=== PATIENT | female | born 1985 | race African-American/Black ===

== ENCOUNTER 2021-12-08 11:11 | Inpatient (IN) | payer MEDICAID, OTHER ==
[~2021-12-08] VITALS: Ht 170.2 cm; Wt 84.7 kg
[2021-12-08 12:04] LABS: Basophils # (auto) 0 10 ^3/uL (0-0.2); Eosinophils # (auto) 0.1 10 ^3/uL (0-0.8); Lymphocytes # (auto) 0.9 10 ^3/uL (0.4-5.4); Mean Corpuscular Volume 80.2 fL (80.0-100.0); Monocytes # (auto) 0.1 10 ^3/uL (0-1.3); Neutrophils # (auto) 1.8 10 ^3/uL (1.6-8.6); White Blood Cell 2.9 10^3/uL (4.4-10.8)
[2021-12-08 12:06] LABS: Basophils % (auto) 0.4 % (0.0-2.0); Hematocrit 35.8 % (36.0-46.0); Hemoglobin 11.3 g/dL (12.2-16.2); Lymphocytes % (auto) 30.7 % (10.0-50.0); Mean Corpuscular Hemoglobin 25.3 pg (28.0-32.0); Mean Corpuscular Hgb Conc. 31.6 g/dL (32.0-36.0); Monocytes % (auto) 4.9 % (0.0-12.0); Nucleated Red Blood Cells % 0.1 %; Red Blood Cells 4.46 10^6/uL (4.0-5.20); Red Cell Distribution Width 14.8 % (11.8-14.3)
[2021-12-08 12:26] LABS: Albumin 3.8 g/dL (3.4-5.0); BUN/Creatinine Ratio 9.7; Calcium 8.2 mg/dL (8.5-10.1); Magnesium 2.5 mg/dL (1.6-2.6); Potassium 3.8 mmol/L (3.5-5.1)
[2021-12-08 12:29] LABS: Bilirubin, Total 0.3 mg/dL (0.2-1.0); Total Protein 7.9 g/dL (6.4-8.2)
[2021-12-08 14:42] LABS: Urine Bacteria FEW /hpf (None Seen); Urine Blood 3+ /uL (Negative); Urine Specific Gravity 1.009 (1.001-1.035); Urine WBC 3 /hpf (0 - 5)
[2021-12-08] MEDS ORDERED: ASPirin 325 MG TAB PO ONE (15:45)
[2021-12-08] MEDS ORDERED: MORPHINE SULFATE INJ 2 MG/ml SYRG IV PRN (16:15)
[2021-12-08] MEDS ORDERED: ACETAMINOPHEN 325 MG TAB PO PRN (16:15)
[2021-12-08] MEDS ORDERED: HYDROcodone-ACET 5/325MG TAB PO PRN (16:15)
[2021-12-08] MEDS: SODIUM CHLORIDE 0.9% 1,000 ML IV SCH (16:52)
[2021-12-08 23:35] VITALS: BP 130/85
[2021-12-09] MEDS ORDERED: NIF10C PO (01:56)
[2021-12-09 05:00] VITALS: BP 112/74
[2021-12-09 06:08] LABS: Basophils # (auto) 0 10 ^3/uL (0-0.2); Lymphocytes # (auto) 1.7 10 ^3/uL (0.4-5.4); Monocytes # (auto) 0.2 10 ^3/uL (0-1.3); Neutrophils # (auto) 1.5 10 ^3/uL (1.6-8.6); Nucleated Red Blood Cells % 0.2 %; White Blood Cell 3.5 10^3/uL (4.4-10.8)
[2021-12-09 06:12] LABS: Basophils % (auto) 0.5 % (0.0-2.0); Eosinophils # (auto) 0.2 10 ^3/uL (0-0.8); Eosinophils % (auto) 4.4 % (0.0-7.0); Hematocrit 34.5 % (36.0-46.0); Hemoglobin 10.9 g/dL (12.2-16.2); Lymphocytes % (auto) 47.7 % (10.0-50.0); Mean Corpuscular Hemoglobin 25.3 pg (28.0-32.0); Mean Corpuscular Hgb Conc. 31.5 g/dL (32.0-36.0); Mean Corpuscular Volume 80.4 fL (80.0-100.0); Monocytes % (auto) 4.9 % (0.0-12.0); Neutrophils % (auto) 42.5 % (37.0-80.0); Red Blood Cells 4.29 10^6/uL (4.0-5.20); Red Cell Distribution Width 14.8 % (11.8-14.3)
[2021-12-09 07:16] LABS: Albumin 3.4 g/dL (3.4-5.0); Calcium 8.3 mg/dL (8.5-10.1); Potassium 3.9 mmol/L (3.5-5.1)
[2021-12-09 07:20] LABS: BUN/Creatinine Ratio 10.9; Bilirubin, Total 0.3 mg/dL (0.2-1.0); Total Protein 7.3 g/dL (6.4-8.2)
[2021-12-09 08:00] VITALS: BP 120/89
[2021-12-09 09:00] VITALS: BP 107/74
[2021-12-09] MEDS: ENOXAPARIN SOD 40 MG/0.4 ML SYRINGE SC SCH (09:33)
[2021-12-09] MEDS: SODIUM CHLORIDE 0.9% 1,000 ML IV SCH ×2 (09:35→19:53)
[2021-12-09] MEDS ORDERED: ASPirin 81 mg TAB PO ONE (12:00)
[2021-12-09] MEDS ORDERED: NIFEdipine ER 30 MG TAB PO ONE (12:00)
[2021-12-09 12:05] LABS: Cholesterol 133 mg/dL (< 200)
[2021-12-09 12:08] LABS: HDL Cholesterol 38 mg/dL (40-59); LDL Cholesterol 93 mg/dL (< 100); Triglycerides 63 mg/dL (< 150)
[2021-12-09 13:00] VITALS: BP 120/89
[2021-12-09 16:32] VITALS: BP 133/88
[2021-12-09 22:00] VITALS: BP 110/70
[2021-12-10] VITALS (8 sets, daily range): BP systolic 105–124; BP diastolic 67–87
[2021-12-10 05:05] LABS: Basophils # (auto) 0 10 ^3/uL (0-0.2); Eosinophils # (auto) 0.1 10 ^3/uL (0-0.8); Monocytes # (auto) 0.1 10 ^3/uL (0-1.3); Neutrophils # (auto) 1.7 10 ^3/uL (1.6-8.6); Red Cell Distribution Width 14.7 % (11.8-14.3); White Blood Cell 3.5 10^3/uL (4.4-10.8)
[2021-12-10 05:07] LABS: Basophils % (auto) 0.5 % (0.0-2.0); Eosinophils % (auto) 3.8 % (0.0-7.0); Hematocrit 33.3 % (36.0-46.0); Hemoglobin 10.6 g/dL (12.2-16.2); Lymphocytes # (auto) 1.5 10 ^3/uL (0.4-5.4); Lymphocytes % (auto) 43.8 % (10.0-50.0); Mean Corpuscular Hemoglobin 25.4 pg (28.0-32.0); Mean Corpuscular Hgb Conc. 31.7 g/dL (32.0-36.0); Mean Corpuscular Volume 80.2 fL (80.0-100.0); Monocytes % (auto) 3.9 % (0.0-12.0); Red Blood Cells 4.15 10^6/uL (4.0-5.20)
[2021-12-10 05:23] LABS: INR 0.95 (0.9-1.15); Partial Thromboplastin Time 28.4 sec (24.6-33.4)
[2021-12-10 05:35] LABS: Calcium 8.5 mg/dL (8.5-10.1)
[2021-12-10] MEDS ORDERED: IODIXANOL 320MG/ML 100ML BTL IV ONE (08:21)
[2021-12-10] MEDS ORDERED: LIDOCAINE 2%HCL (LOCAL ANESTH.) INJ 20ML MDV ONE (08:21)
[2021-12-10] MEDS ORDERED: fentaNYL CITRATE 100 MCG/2 ML VL ONE (08:29)
[2021-12-10] MEDS ORDERED: VERAPAMIL 2.5MG/ML INJ 2ML VIAL IV ONE ×2 (08:29→09:34)
[2021-12-10] MEDS ORDERED: HEPARIN SODIUM (PORCINE) 5000 UNITS/ML 1ML VIAL ONE ×2 (08:29→09:34)
[2021-12-10] MEDS ORDERED: MIDAZOLAM HCL 2MG/2ML 2ml VIAL (1mg/ml) ONE (08:29)
[2021-12-10] MEDS ORDERED: ANGIOMAX 250 MG VIAL IV ONE (08:29)
[2021-12-10] MEDS ORDERED: SODIUM CHL 0.9% 0 ML ONE (08:30)
[2021-12-10] MEDS ORDERED: NIFEdipine ER 30 MG TAB PO SCH (10:00)
[2021-12-10] MEDS: ENOXAPARIN SOD 40 MG/0.4 ML SYRINGE SC SCH (10:00)
[2021-12-10] MEDS ORDERED: ASPirin 81 mg TAB PO SCH (10:00)
[2021-12-10] MEDS ORDERED: ASPI-325 PO (10:57)
[2021-12-10] MEDS ORDERED: SACU1TAB PO (12:05)
[2021-12-10] MEDS ORDERED: CAR3125T PO (12:05)
[2021-12-10] MEDS ORDERED: CARVEDILOL 3.125 MG TAB PO SCH (22:00)
[2021-12-10] MEDS ORDERED: SACUBITRIL-VALSARTAN 24mg/26mg TAB PO SCH (22:00)
== END 2021-12-10 17:00 | disposition home or self-care (01) | DRG 287 ==
LOC: ER 11:11 → EDBD 11:11 → TELE 16:09 → TELE-WESTW 23:01
PROVIDERS: ADMIT Internal Medicine; ATTEND Internal Medicine Pulmonary Disease
PROC: 4A023N7 Measurement of Cardiac Sampling and Pressure, Left Heart, Percutaneous Approach (ICD-10-PCS; principal; 2021-12-10)
PROC: B2111ZZ Fluoroscopy of Multiple Coronary Arteries using Low Osmolar Contrast (ICD-10-PCS; 2021-12-10)
PROC: B2151ZZ Fluoroscopy of Left Heart using Low Osmolar Contrast (ICD-10-PCS; 2021-12-10)
DX: R07.89 Other chest pain (principal); I10 Essential (primary) hypertension; Z82.49 Family history of ischemic heart disease and other diseases of the circulatory system; Z79.899 Other long term (current) drug therapy; Z84.1 Family history of disorders of kidney and ureter
CPT/HCPCS: 36415; 71045; 80048; 80053; 80061; 81001; 81025; 83735; 83880; 84484; 84702; 85025; 85610; 85730; 93005; 93306; 93458; G0378; J2250; Q9967

== ENCOUNTER → 2022-01-20 | Outpatient (CLI) | payer BC ==
[~2022-01-20] MED LIST: ASPI-325 PO; CAR3125T PO; SACU1TAB PO
== END | disposition home or self-care (01) ==
LOC: XYW 15:58
PROVIDERS: ATTEND Nurse Practitioner Acute Care
DX: I08.2 Rheumatic disorders of both aortic and tricuspid valves (principal); I10 Essential (primary) hypertension; I50.1 Left ventricular failure, unspecified
CPT/HCPCS: 93306

== ENCOUNTER → 2022-04-22 | Outpatient (CLI) | payer BC ==
[2022-04-22 13:39] LABS: Eosinophils # (auto) 0.1 10 ^3/uL (0-0.8); Monocytes # (auto) 0.2 10 ^3/uL (0-1.3); Neutrophils # (auto) 2.5 10 ^3/uL (1.6-8.6)
[2022-04-22 13:41] LABS: Basophils # (auto) 0.1 10 ^3/uL (0-0.2); Basophils % (auto) 1.2 % (0.0-2.0); Eosinophils % (auto) 1.8 % (0.0-7.0); Hematocrit 34.7 % (36.0-46.0); Hemoglobin 10.7 g/dL (12.2-16.2); Lymphocytes # (auto) 1.9 10 ^3/uL (0.4-5.4); Lymphocytes % (auto) 40.7 % (10.0-50.0); Mean Corpuscular Hgb Conc. 30.7 g/dL (32.0-36.0); Mean Corpuscular Volume 71.6 fL (80.0-100.0); Neutrophils % (auto) 52.3 % (37.0-80.0); Red Blood Cells 4.84 10^6/uL (4.0-5.20); Red Cell Distribution Width 18.3 % (11.8-14.3); White Blood Cell 4.8 10^3/uL (4.4-10.8)
[2022-04-22 14:03] LABS: Calcium 9.1 mg/dL (8.5-10.1)
[2022-04-22 14:05] LABS: BUN/Creatinine Ratio 11.1
== END | disposition home or self-care (01) ==
LOC: LAB 13:26
PROVIDERS: ATTEND Internal Medicine
DX: I11.9 Hypertensive heart disease without heart failure (principal)
CPT/HCPCS: 36415; 80048; 85025

== ENCOUNTER → 2022-06-13 | Outpatient (CLI) | payer BC ==
[2022-06-13 15:26] LABS: Basophils # (auto) 0 10 ^3/uL (0-0.2); Eosinophils # (auto) 0.1 10 ^3/uL (0-0.8); Mean Corpuscular Hemoglobin 21.2 pg (28.0-32.0); Mean Corpuscular Hgb Conc. 30.6 g/dL (32.0-36.0); Nucleated Red Blood Cells % 0.1 %
[2022-06-13 15:28] LABS: Basophils % (auto) 0.3 % (0.0-2.0); Eosinophils % (auto) 2.5 % (0.0-7.0); Hematocrit 34.1 % (36.0-46.0); Hemoglobin 10.4 g/dL (12.2-16.2); Lymphocytes # (auto) 2.2 10 ^3/uL (0.4-5.4); Lymphocytes % (auto) 38.4 % (10.0-50.0); Mean Corpuscular Volume 69.2 fL (80.0-100.0); Monocytes # (auto) 0.3 10 ^3/uL (0-1.3); Monocytes % (auto) 4.5 % (0.0-12.0); Neutrophils % (auto) 54.3 % (37.0-80.0); Red Blood Cells 4.92 10^6/uL (4.0-5.20); White Blood Cell 5.6 10^3/uL (4.4-10.8)
[2022-06-13 15:44] LABS: INR 0.94 (0.9-1.15); Partial Thromboplastin Time 30.1 sec (24.6-33.4)
[2022-06-13 15:47] LABS: Albumin 3.8 g/dL (3.4-5.0); BUN/Creatinine Ratio 12.7; Calcium 9.1 mg/dL (8.5-10.1); Potassium 4.4 mmol/L (3.5-5.1)
[2022-06-13 15:50] LABS: Bilirubin, Total 0.3 mg/dL (0.2-1.0); Total Protein 8.2 g/dL (6.4-8.2)
== END | disposition home or self-care (01) ==
LOC: LAB 14:59
PROVIDERS: ATTEND Internal Medicine
DX: Z01.812 Encounter for preprocedural laboratory examination (principal); I11.0 Hypertensive heart disease with heart failure; I50.22 Chronic systolic (congestive) heart failure
CPT/HCPCS: 36415; 80053; 83880; 85025; 85610; 85730

== ENCOUNTER → 2022-08-03 | Outpatient (CLI) | payer BC ==
[2022-08-03 11:18] LABS: Basophils # (auto) 0 10 ^3/uL (0-0.2); Basophils % (auto) 0.6 % (0.0-2.0); Eosinophils # (auto) 0 10 ^3/uL (0-0.8); Hemoglobin 8.7 g/dL (12.2-16.2); Lymphocytes # (auto) 1.5 10 ^3/uL (0.4-5.4); Monocytes # (auto) 0.2 10 ^3/uL (0-1.3); Neutrophils # (auto) 2.4 10 ^3/uL (1.6-8.6); White Blood Cell 4.1 10^3/uL (4.4-10.8)
[2022-08-03 11:21] LABS: Eosinophils % (auto) 1.1 % (0.0-7.0); Lymphocytes % (auto) 36.2 % (10.0-50.0); Mean Corpuscular Hemoglobin 19.8 pg (28.0-32.0); Mean Corpuscular Volume 65.8 fL (80.0-100.0); Monocytes % (auto) 4.5 % (0.0-12.0); Neutrophils % (auto) 57.6 % (37.0-80.0); Red Cell Distribution Width 18.3 % (11.8-14.3)
[2022-08-03 12:15] LABS: Albumin 3.6 g/dL (3.4-5.0); BUN/Creatinine Ratio 13.1 (10.0-20.0); Calcium 8.6 mg/dL (8.5-10.1); Potassium 3.6 mmol/L (3.5-5.1); Total Protein 7.6 g/dL (6.4-8.2)
[2022-08-03 12:18] LABS: Bilirubin, Total 0.5 mg/dL (0.2-1.0)
== END | disposition home or self-care (01) ==
LOC: LAB 10:15
PROVIDERS: ATTEND Obstetrics & Gynecology
DX: Z01.419 Encounter for gynecological examination (general) (routine) without abnormal findings (principal)
CPT/HCPCS: 36415; 80053; 80061; 82306; 83036; 84443; 84480; 85025; 86592; 86695; 86696; 86703; 87340; 87517

== ENCOUNTER → 2022-12-27 | Outpatient (CLI) | payer BC | END | disposition home or self-care (01) | LOC: XYW 15:37 | PROVIDERS: ATTEND Internal Medicine | DX: I42.8 Other cardiomyopathies (principal) | CPT/HCPCS: 93306 ==

== ENCOUNTER → 2023-01-03 | Outpatient (CLI) | payer BC ==
[2023-01-03 12:00] LABS: Follicle Stimulating Hormone 7.02 IU/L (SEE BELOW); Leuteinizing Hormone 4.7 IU/L
== END | disposition home or self-care (01) ==
LOC: LAB 11:04
PROVIDERS: ATTEND Obstetrics & Gynecology
DX: N95.1 Menopausal and female climacteric states (principal)
CPT/HCPCS: 36415; 82670; 83001; 83002; 84144; 84403

== ENCOUNTER 2023-02-24 07:12 | Day surgery (SDC) | payer BC ==
[2023-02-21 10:43] LABS: Basophils # (auto) 0 10 ^3/uL (0-0.2); Basophils % (auto) 0.6 % (0.0-2.0); Eosinophils # (auto) 0.1 10 ^3/uL (0-0.8); Eosinophils % (auto) 2.3 % (0.0-7.0); Hematocrit 36.4 % (36.0-46.0); Hemoglobin 12.2 g/dL (12.2-16.2); Lymphocytes # (auto) 1.3 10 ^3/uL (0.4-5.4); Lymphocytes % (auto) 38.8 % (10.0-50.0); Mean Corpuscular Hemoglobin 29.8 pg (28.0-32.0); Mean Corpuscular Hgb Conc. 33.5 g/dL (32.0-36.0); Mean Corpuscular Volume 89.1 fL (80.0-100.0); Monocytes # (auto) 0.1 10 ^3/uL (0-1.3); Monocytes % (auto) 3.8 % (0.0-12.0); Neutrophils # (auto) 1.8 10 ^3/uL (1.6-8.6); Neutrophils % (auto) 54.5 % (37.0-80.0); Nucleated Red Blood Cells % 0.1 %; Red Blood Cells 4.09 10^6/uL (4.0-5.20); Red Cell Distribution Width 14.3 % (11.8-14.3); White Blood Cell 3.4 10^3/uL (4.4-10.8)
[2023-02-21 10:57] LABS: Urine Bacteria FEW /hpf (None Seen); Urine Blood Negative /uL (Negative); Urine Clarity Clear (Clear); Urine Color Yellow (Yellow); Urine Mucus FEW (None Seen); Urine Protein, UAD TRACE (Negative); Urine Specific Gravity 1.025 (1.001-1.035); Urine Urobilinogen Normal (Negative); Urine WBC 1 /hpf (0 - 5)
[2023-02-21 11:01] LABS: INR 1.02 (0.9-1.15); Partial Thromboplastin Time 30.8 SEC (24.5-34.5); Prothrombin Time 10.7 sec (9.3-11.8)
[2023-02-21 11:03] LABS: Alanine Aminotransferase 17 U/L (7-40); Albumin 4.3 g/dL (3.2-4.8); Alkaline Phosphatase 38 U/L (46-116); Anion Gap 7 (5-15); Aspartate Aminotransferase 9 U/L (13-40); BUN/Creatinine Ratio 12.2 (10.0-20.0); Blood Urea Nitrogen 9 mg/dL (9-23); Calcium 9.1 mg/dL (8.5-10.1); Carbon Dioxide 28 mmol/L (20-30); Chloride 105 mmol/L (98-107); Glucose 88 mg/dL (74-106); Potassium 3.8 mmol/L (3.5-5.1); Sodium 140 mmol/L (136-145); Total Protein 7.3 g/dL (5.7-8.2)
[2023-02-21 11:13] LABS: Bilirubin, Total 0.5 mg/dL (0.2-1.0)
[~2023-02-24] VITALS: Ht 170.2 cm; Wt 81.6 kg
[~2023-02-24 07:12] MED LIST changes: +ceFAZolin 1GM/50ML 100 ML IV ONE
[2023-02-24] MEDS ORDERED: SUCCINYLCHOLINE CHLORIDE 20 MG/ML 10ML VIAL IV ONE (08:05)
[2023-02-24] MEDS ORDERED: fentaNYL CITRATE 100 MCG/2 ML VL ONE (08:06)
[2023-02-24] MEDS ORDERED: SUGAMMADEX 200mg/2ml Vial (100MG/ML) IV ONE (08:08)
[2023-02-24] MEDS ORDERED: PROPOFOL 10 MG/ML 20 ML IV ONE (08:37)
[2023-02-24] MEDS ORDERED: ROCURONIUM 10MG/ML 10ML VIAL IV ONE (08:44)
[2023-02-24] MEDS ORDERED: ONDANSETRON HCL 4 MG/2 ML VIAL ONE (08:45)
[2023-02-24] MEDS ORDERED: DexAMETHasone SOD PHOS 10MG/1ML VIAL INJ ONE (08:46)
[2023-02-24] MEDS ORDERED: MEPERIDINE HCL (50 MG/ML) 1 ML VIAL ONE (08:47)
[2023-02-24] MEDS ORDERED: BUPIVACAINE 0.5% P/F INJ 10 ML VIAL ONE (09:08)
[2023-02-24] MEDS ORDERED: SODIUM CHLORIDE LOCK 30 ML ONE (10:07)
[2023-02-24] MEDS ORDERED: HYDR-4902 PO (10:17)
[2023-02-24 10:37] VITALS: PULSE 74; RESP 15; O2SAT 93
[2023-02-24] MEDS ORDERED: MEPERIDINE HCL (25 MG/ML) 1ML VIAL IV PRN (11:00)
[2023-02-24] MEDS ORDERED: ONDANSETRON HCL 4 MG/2 ML VIAL IV PRN (11:00)
[2023-02-24] MEDS: HYDROmorphone HCL 2 MG/ML VL/or syr IV PRN ×2 (11:25→11:36)
[2023-02-24 11:57] VITALS: BP 133/86; PULSE 63; RESP 14; O2SAT 98
== END 2023-02-24 12:10 | disposition home or self-care (01) ==
LOC: SUR 07:12
PROVIDERS: ATTEND Obstetrics & Gynecology
DX: N92.0 Excessive and frequent menstruation with regular cycle (principal); N83.8 Other noninflammatory disorders of ovary, fallopian tube and broad ligament; N88.8 Other specified noninflammatory disorders of cervix uteri; D25.9 Leiomyoma of uterus, unspecified; I10 Essential (primary) hypertension; Z30.2 Encounter for sterilization; Z98.890 Other specified postprocedural states; Z84.89 Family history of other specified conditions; Z79.82 Long term (current) use of aspirin; Z79.891 Long term (current) use of opiate analgesic; Z79.899 Other long term (current) drug therapy
CPT/HCPCS: 36415; 58563; 58661; 80053; 81001; 81025; 85025; 85610; 85730; 86850; 86900; 86901; 88305; J0330; J0690; J1100; J1170; J2175; J2405; J2704; J3010; J3490

== ENCOUNTER 2023-03-01 15:48 | Emergency (ER) | payer BC ==
[~2023-03-01] VITALS: Ht 165.1 cm; Wt 81.5 kg
[~2023-03-01 15:48] MED LIST changes: +HYDR-4902 PO; -ceFAZolin 1GM/50ML 100 ML IV ONE
[2023-03-01 16:57] LABS: Basophils # (auto) 0 10 ^3/uL (0-0.2); Basophils % (auto) 0.7 % (0.0-2.0); Eosinophils # (auto) 0.1 10 ^3/uL (0-0.8); Eosinophils % (auto) 2.3 % (0.0-7.0); Hematocrit 38.4 % (36.0-46.0); Hemoglobin 12.4 g/dL (12.2-16.2); Lymphocytes # (auto) 1.3 10 ^3/uL (0.4-5.4); Lymphocytes % (auto) 26.1 % (10.0-50.0); Mean Corpuscular Hemoglobin 28.5 pg (28.0-32.0); Mean Corpuscular Hgb Conc. 32.3 g/dL (32.0-36.0); Mean Corpuscular Volume 88.2 fL (80.0-100.0); Monocytes # (auto) 0.5 10 ^3/uL (0-1.3); Monocytes % (auto) 9.9 % (0.0-12.0); Nucleated Red Blood Cells % 0.1 %; Red Blood Cells 4.36 10^6/uL (4.0-5.20); Red Cell Distribution Width 14.5 % (11.8-14.3); White Blood Cell 4.9 10^3/uL (4.4-10.8)
[2023-03-01 17:17] LABS: Alanine Aminotransferase 17 U/L (7-40); Albumin 4.3 g/dL (3.2-4.8); Alkaline Phosphatase 38 U/L (46-116); Anion Gap 6 (5-15); Aspartate Aminotransferase 10 U/L (13-40); BUN/Creatinine Ratio 8.3 (10.0-20.0); Bilirubin, Total 0.4 mg/dL (0.2-1.0); Blood Urea Nitrogen 6 mg/dL (9-23); Calcium 9.1 mg/dL (8.5-10.1); Carbon Dioxide 25 mmol/L (20-30); Chloride 106 mmol/L (98-107); Glucose 109 mg/dL (74-106); Potassium 3.4 mmol/L (3.5-5.1); Sodium 137 mmol/L (136-145)
[2023-03-01 17:18] LABS: Total Protein 7.4 g/dL (5.7-8.2)
[2023-03-01] MEDS ORDERED: SODIUM CHLORIDE 0.9% 1,000 ML IVB ONE (17:45)
[2023-03-01] MEDS ORDERED: ONDANSETRON ODT 4 MG TAB PO ONE (17:45)
[2023-03-01 17:50] LABS: Urine Bacteria NONE SEEN /hpf (None Seen); Urine Blood 1+ /uL (Negative); Urine Clarity HAZY (Clear); Urine Color Yellow (Yellow); Urine Mucus FEW (None Seen); Urine Protein, UAD TRACE (Negative); Urine Specific Gravity 1.029 (1.001-1.035); Urine Urobilinogen Normal (Negative); Urine WBC 1 /hpf (0 - 5); Urine pH 5.5 (5.0-8.0)
[2023-03-01] MEDS ORDERED: METO-281 PO (19:02)
[2023-03-01 19:50] VITALS: BP 121/85; PULSE 81; RESP 16; TEMP 98.8; O2SAT 100
== END 2023-03-01 19:59 | disposition home or self-care (01) ==
LOC: ER 15:48
DX: K52.9 Noninfective gastroenteritis and colitis, unspecified (principal); E87.6 Hypokalemia; I10 Essential (primary) hypertension; Z79.899 Other long term (current) drug therapy; Z79.82 Long term (current) use of aspirin; Z98.890 Other specified postprocedural states
CPT/HCPCS: 36415; 80053; 81001; 85025; 96360; 96361; 99283; J7030; Q0162

== ENCOUNTER → 2023-06-22 | Outpatient (CLI) | payer BC ==
[~2023-06-22] MED LIST changes: +METO-281 PO
== END | disposition home or self-care (01) ==
LOC: XYW 14:39
PROVIDERS: ATTEND Internal Medicine
DX: I51.89 Other ill-defined heart diseases (principal); I42.8 Other cardiomyopathies
CPT/HCPCS: 93306

== ENCOUNTER 2024-01-14 09:16 | Inpatient (IN) | payer BC, MEDICAID ==
[~2024-01-14] VITALS: Ht 170.2 cm; Wt 81.9 kg
[~2024-01-14 09:16] MED LIST changes: -CAR3125T PO; +CARV-214 PO
[2024-01-14 10:04] LABS: Basophils # (auto) 0 10 ^3/uL (0-0.2); Basophils % (auto) 0.2 % (0.0-2.0); Eosinophils # (auto) 0.1 10 ^3/uL (0-0.8); Eosinophils % (auto) 1.1 % (0.0-7.0); Hematocrit 44.3 % (36.0-46.0); Hemoglobin 15.2 g/dL (12.2-16.2); Lymphocytes # (auto) 0.9 10 ^3/uL (0.4-5.4); Lymphocytes % (auto) 16.9 % (10.0-50.0); Mean Corpuscular Hemoglobin 31.2 pg (28.0-32.0); Mean Corpuscular Hgb Conc. 34.3 g/dL (32.0-36.0); Mean Corpuscular Volume 90.9 fL (80.0-100.0); Monocytes # (auto) 0.3 10 ^3/uL (0-1.3); Monocytes % (auto) 4.7 % (0.0-12.0); Neutrophils # (auto) 4.1 10 ^3/uL (1.6-8.6); Neutrophils % (auto) 77.1 % (37.0-80.0); Nucleated Red Blood Cells % 0.1 %; Platelet Count (auto) 255 10^3/uL (140-450); Red Blood Cells 4.88 10^6/uL (4.0-5.20); Red Cell Distribution Width 14.8 % (11.8-14.3); White Blood Cell 5.4 10^3/uL (4.4-10.8)
[2024-01-14 10:13] LABS: Chloride 107 mmol/L (98-107); Potassium 3.9 mmol/L (3.5-5.1); Sodium 137 mmol/L (136-145)
[2024-01-14 10:14] LABS: Anion Gap 6 (5-15); Calcium 9.3 mg/dL (8.7-10.4); Carbon Dioxide 24 mmol/L (20-30)
[2024-01-14 10:19] LABS: BUN/Creatinine Ratio 10.4 (10.0-20.0); Blood Urea Nitrogen 8 mg/dL (9-23); Glucose 112 mg/dL (74-106)
[2024-01-14 11:10] VITALS: PULSE 83; RESP 16; O2SAT 99
[2024-01-14 11:47] LABS: Urine Bacteria None Seen /hpf (None Seen)
[2024-01-14] MEDS: ASPirin 81 mg TAB PO ONE (11:49)
[2024-01-14 11:54] LABS: Urine Blood TRACE /uL (Negative); Urine Clarity Clear (Clear); Urine Color Light-Yellow (Yellow); Urine Protein, UAD Negative (Negative); Urine Urobilinogen Normal (Negative); Urine WBC 1 /hpf (0 - 5)
[2024-01-14] MEDS: ACETAMINOPHEN 325 MG TAB PO ONE (13:22)
[2024-01-14] MEDS: ONDANSETRON HCL 4 MG/2 ML VIAL IV ONE (14:58)
[2024-01-14] MEDS ORDERED: LOSA-534 PO (16:26)
[2024-01-14] MEDS ORDERED: HYDR12.59 PO (16:26)
[2024-01-14] MEDS ORDERED: ACETAMINOPHEN 325 MG TAB PO PRN (16:30)
[2024-01-14] MEDS ORDERED: NITROGLYCERIN 0.4 MG SL TAB SL PRN ×2 (16:30)
[2024-01-14 17:14] LABS: Magnesium 2.1 mg/dL (1.6-2.6)
[2024-01-14] MEDS: MORPHINE SULFATE INJ 2 MG/ml SYRG IV PRN (17:28)
[2024-01-14] MEDS: ONDANSETRON HCL 4 MG/2 ML VIAL IV PRN (17:35)
[2024-01-14 18:32] LABS: Prothrombin Time 10.6 sec (9.3-11.8)
[2024-01-14] MEDS: HYDROcodone-ACET 5/325MG TAB PO PRN (18:59)
[2024-01-14 20:17] VITALS: PULSE 70; RESP 16; O2SAT 100
[2024-01-14 21:41] VITALS: BP 128/85; PULSE 72; PULSE 75; RESP 16; RESP 18; TEMP 98.1; O2SAT 100
[2024-01-14] MEDS ORDERED: METR-344 PO (22:15)
[2024-01-14] MEDS: CARVEDILOL 3.125 MG TAB PO SCH (22:31)
[2024-01-14] MEDS: SACUBITRIL-VALSARTAN 24mg/26mg TAB PO SCH (22:31)
[2024-01-14] MEDS: ATORVASTATIN 20 MG TAB PO SCH (22:32)
[2024-01-14] MEDS: diphenhdrAMINE HCL 50 MG/1 ML VL IV ONE (22:58)
[2024-01-14] MEDS: metroNIDAZOLE 500 MG TAB PO ONE (22:58)
[2024-01-15] VITALS (8 sets, daily range): BP systolic 93–124; BP diastolic 56–78; PULSE 64–101; RESP 17–20; TEMP 97.6–98.4; O2SAT 94–100
[2024-01-15 06:33] LABS: Basophils # (auto) 0 10 ^3/uL (0-0.2); Basophils % (auto) 0.3 % (0.0-2.0); Eosinophils # (auto) 0.1 10 ^3/uL (0-0.8); Eosinophils % (auto) 2.3 % (0.0-7.0); Hematocrit 40.6 % (36.0-46.0); Lymphocytes # (auto) 1.2 10 ^3/uL (0.4-5.4); Mean Corpuscular Hemoglobin 31.3 pg (28.0-32.0); Mean Corpuscular Hgb Conc. 34.5 g/dL (32.0-36.0); Mean Corpuscular Volume 90.8 fL (80.0-100.0); Monocytes # (auto) 0.4 10 ^3/uL (0-1.3); Monocytes % (auto) 9.2 % (0.0-12.0); Neutrophils # (auto) 2.9 10 ^3/uL (1.6-8.6); Neutrophils % (auto) 63.2 % (37.0-80.0); Nucleated Red Blood Cells % 0.1 %; Platelet Count (auto) 208 10^3/uL (140-450); Red Blood Cells 4.48 10^6/uL (4.0-5.20); Red Cell Distribution Width 14.9 % (11.8-14.3); White Blood Cell 4.6 10^3/uL (4.4-10.8)
[2024-01-15 06:51] LABS: Alanine Aminotransferase 23 U/L (7-40); Albumin 3.9 g/dL (3.2-4.8); Alkaline Phosphatase 38 U/L (46-116); Anion Gap 5 (5-15); Aspartate Aminotransferase 15 U/L (13-40); BUN/Creatinine Ratio 12.5 (10.0-20.0); Bilirubin, Total 0.4 mg/dL (0.2-1.0); Blood Urea Nitrogen 9 mg/dL (9-23); Carbon Dioxide 24 mmol/L (20-30); Chloride 109 mmol/L (98-107); Cholesterol 117 mg/dL (< 200); Glucose 96 mg/dL (74-106); HDL Cholesterol 36 mg/dL (40-59); LDL Cholesterol 63 mg/dL (< 100); Potassium 3.9 mmol/L (3.5-5.1); Sodium 138 mmol/L (136-145); Total Protein 6.8 g/dL (5.7-8.2); Triglycerides 97 mg/dL (< 150)
[2024-01-15] MEDS: ASPirin 81 mg TAB PO SCH (09:42)
[2024-01-15] MEDS: metroNIDAZOLE 500 MG TAB PO SCH (09:43)
[2024-01-15] MEDS: diphenhdrAMINE HCL 25 MG CAP PO ONE (09:43)
[2024-01-15] MEDS: DOCUSATE SOD 100 MG CAP PO SCH (09:43)
[2024-01-15] MEDS: ASPirin-EC 81 mg tab PO SCH (09:48)
[2024-01-15] MEDS: diphenhdrAMINE HCL 50 MG/1 ML VL IV PRN (21:50)
[2024-01-16 01:21] VITALS: BP 112/70; PULSE 71; RESP 18; TEMP 98.5; O2SAT 100
[2024-01-16 05:00] VITALS: BP 108/70; PULSE 67; RESP 18; TEMP 98.3; O2SAT 100
[2024-01-16 06:47] LABS: Chloride 110 mmol/L (98-107); Sodium 138 mmol/L (136-145)
[2024-01-16 06:48] LABS: Anion Gap 3 (5-15); Calcium 8.6 mg/dL (8.7-10.4); Carbon Dioxide 25 mmol/L (20-30)
[2024-01-16 06:53] LABS: Blood Urea Nitrogen 9 mg/dL (9-23); Glucose 96 mg/dL (74-106)
[2024-01-16 09:00] VITALS: BP 103/62; PULSE 65; RESP 16; TEMP 98.4; O2SAT 94
== END 2024-01-16 15:45 | disposition home or self-care (01) | DRG 203 ==
LOC: ER 09:34 → TELE 16:23 → TELE-CENTR 21:36 → CENTRAL 01-16 06:21
PROVIDERS: ADMIT Internal Medicine; ATTEND Internal Medicine
DX: M94.0 Chondrocostal junction syndrome [Tietze] (principal); O90.3 Peripartum cardiomyopathy; I50.9 Heart failure, unspecified; I11.0 Hypertensive heart disease with heart failure; R20.0 Anesthesia of skin; R00.2 Palpitations; F41.0 Panic disorder [episodic paroxysmal anxiety]; G43.909 Migraine, unspecified, not intractable, without status migrainosus; N76.0 Acute vaginitis; Z98.51 Tubal ligation status; Z88.9 Allergy status to unspecified drugs, medicaments and biological substances
CPT/HCPCS: 36415; 70450; 71046; 80048; 80053; 80061; 81001; 83036; 83735; 83880; 84100; 84443; 84484; 85025; 85379; 85610; 93005; 93306; 96374; 96375; G0378; J2405

== ENCOUNTER 2024-06-13 10:19 | Emergency (ER) | payer BC, MEDICAID ==
[~2024-06-13] VITALS: Ht 170.2 cm; Wt 83.7 kg
[~2024-06-13 10:19] MED LIST changes: -ASPI-325 PO; +HYDR12.59 PO; +LOSA-534 PO; -METO-281 PO; +METR-344 PO; -SACU1TAB PO
--- NOTE | 2024-06-13 10:45 | ECG ---
[facility] Test Date: 2024-06-13 Test Time: 10:44:03 Pat Name: LACHO MURRELL Department: ER Room: Gender: F Coater [place]: EDWARD : 1985 Requested By: MALA MCKEON Order Number: [id number] Reading MD: Baron Torres Measurements Intervals [place] Rate: 77 P: 77 GA: 129 QRS: 73 QRSD: 94 T: -61 QT: 365 QTc: 414 Interpretive Statements Sinus rhythm Abnormal T, consider ischemia, diffuse leads Electronically Signed On 06-14-2024 13:16:33 PST by Baron Torres Please click the below link to view image of tracing.
--- NOTE | 2024-06-13 10:46 | ED.PDOC ---
History of Present Illness HPI Comments 39-year-old female with PMHx HTN presents with a chief complaint of HTN and headache x 2 days. Patients BP in triage was initially 160/109 and rechecked at 154/104. Patient states that she has been compliant with her medications and sees Dr. Torres for her cardiology concerns. Patient reports the she has a he adache that she rates a 9/10, describes as throbbing, and is localized to her frontal region. Patient denies missing a dose of her medication. Time Seen by MD: 10:34 Primary Care Provider: UNKNOWN Reviewed Notes: Nurses Notes, Medications, Allergies Allergies: Coded Allergies: Miconazole (Verified Allergy, Unknown, 01/14/24) Uncoded Allergies: Adhesive (Allergy, Unknown, 01/15/24) Home Meds Active Scripts Hydrocodone-Acetaminophen (Hydrocodone Bitartrate/AC 5-325 mg) 1 Tab Tab, 1 TAB PO Q6HPRN PRN for 5 Days, #20 TAB Prov:JOANN RONQUILLO DO 02/24/23 Carvedilol (COREG) 3.125 Mg Tab, 3.125 MG PO Q12HR for 30 Days, #60 TAB Prov:MERARI HIGGINS MD 12/10/21 Reported Medications Metronidazole (Flagyl) 500 Mg Tab, 250 MG PO BID 01/14/24 Losartan Potassium (Losartan Potassium) 50 Mg Tab, 50 MG PO DAILY for 30 Days, MG 01/14/24 Hydrochlorothiazide (Hydrochlorothiazide) 12.5 Mg Cap, 12.5 MG PO DAILY, MG 01/14/24 Information Source: Patient Mode of Arrival: Ambulatory Severity: Moderate Timing: Days Duration: Since onset Prehospital treatment: None Past Medical History PAST MEDICAL HISTORY: HTN Surgical History: , Tubal Ligation PASTORAL WORKER History: No Pertinent PASTORAL WORKER History, Ovarian Cysts Family History Family History: Family hx of heart michael Social History Smoker: Non-Smoker Alcohol: Occasionally Drugs: Denies Drug Use Lives In: Home Constitutional: denies: chills, diaphoresis, fatigue, fever, malaise, sweats, weakness, others EENTM: denies: blurred vision, double vision, ear bleeding, ear discharge, ear drainage, ear pain, ear ringing, eye pain, eye redness, hearing loss, mouth pain, mouth swelling, nasal discharge, nose bleeding, nose congestion, nose pain, photophobia, tearing, throat pain, throat swelling, voice changes, others Respiratory: denies: cough, hemoptysis, orthopnea, SOB at rest, shortness of breath, SOB with excertion, stridor, wheezing, others Cardiovascular: reports: others (HTN); denies: chest pain, dizzy spells, diaphoresis, Dyspnea on exertion, edema, irregular heart beat, left arm pain, lightheadedness, palpitations, PND, syncope Gastrointestinal: denies: abdomen distended, abdominal pain, blood streaked bowels, constipated, diarrhea, dysphagia, difficulty swallowing, hematemesis, melena, nausea, poor appetite, poor fluid intake, rectal bleeding, rectal pain, vomiting, others Genitourinary: denies: abnormal vagina bleeding, burning, dyspareunia, dysuria, flank pain, frequency, hematuria, incontinence, pain, , vagina discharge, urgency, others Neurological: reports: headache; denies: dizziness, fainting, left sided numbness, left sided weakness, numbness, paresthesia, pre-existing deficit, right sided numbness, right sided weakness, seizure, speech problems, tingling, tremors, weakness, others Musculoskeletal: denies: back pain, gout, joint pain, joint swelling, muscle pain, muscle stiffness, neck pain, others Integumetry: denies: bruises, change in color, change in hair/nails, dryness, laceration, lesions, lumps, rash, wounds, others Allergic/Immunocompromised: denies: Difficulty Healing, Frequent Infections, Hives, Itching, others Hematologic/Lymphatic: denies: anemia, blood clots, easy bleeding, easy bruising, swollen glands, others Endocrine: denies: excessive hunger, excessive sweating, excessive thirst, excessive urination, flushing, intolerance to cold, intolerance to heat, unexplained weight gain, unexplained weight loss, others Psychiatric: denies: anxiety, bipolar disorder, depression, hopeless, panic disorder, schizophrenia, sleepless, suicidal, others All Other Systems: Reviewed and Negative Physical Exam General Appearance: No Apparent Distress HEENT: Normal ENT Inspection, Pharynx Normal, TMs Normal Neck: Full Range of Motion, Non-Tender, Normal, Normal Inspection Respiratory: Chest Non-Tender, Lungs Clear, No Accessory Muscle Use, No Resp iratory Distress, Normal Breath Sounds Cardiovascular: No Edema, No JVD, No Murmur, No Gallop, Normal Peripheral Pulses, Regular Rate/Rhythm Breast Exam: Deferred Gastrointestinal: No Organomegaly, Non Tender, No Pulsatile Mass, Normal Bowel Sounds, Soft Genitalia: Deferred Pelvic: Deferred Rectal: Deferred Extremities: No calf tenderness, Normal capillary refill, Normal inspection, Normal range of motion, Non-tender, No pedal edema Musculoskeletal : Apperance: Normal Neurologic: Alert, facility manager II-XII nml as Tested, No Motor Deficits, Normal Affect, Normal Mood, No Sensory Deficits Cerebellar Function: Normal Reflexes: Normal Skin: Dry, Normal Color, Warm Lymphatic: No Adenopathy Was a procedure done? Was a procedure done?: No EKG EKG : Pulse Rate (adult): 77 [place]: Normal Cardiac Rhythm: NSR Block: None Hypertrophy: None ST: Normal Differential Dx Considerations may include: Hypertensive urgency, generalized weakness X-Ray, Labs, Meds, VS Vital Signs Date Time Temp Pulse Resp B/P (MAP) Pulse Ox O2 Delivery O2 Flow Rate FiO2 06/13/24 11:03 79 18 149/119 (129) 98 06/13/24 11:03 79 18 98 Room Air 06/13/24 11:00 149/119 06/13/24 10:59 Room Air* 0 21 06/13/24 10:46 77 06/13/24 10:44 77 Lab Test 06/13/24 10:59 Range/Units White Blood Count 4.3 L 4.4-10.8 10^3/uL Red Blood Count 4.73 4.0-5.20 10^6/uL Hemoglobin 14.4 12.2-16.2 g/dL Hematocrit 43.0 36.0-46.0 % Mean Corpuscular Volume 91.0 80.0-100.0 fL Mean Corpuscular Hemoglobin 30.5 28.0-32.0 pg Mean Corpuscular Hemoglobin Concent 33.5 32.0-36.0 g/dL Red Cell Distribution Width 14.0 11.8-14.3 % Platelet Count 275 140-450 10^3/uL Mean Platelet Volume 7.1 6.9-10.8 fL Neutrophils (%) (Auto) 60.2 37.0-80.0 % Lymphocytes (%) (Auto) 33.7 10.0-50.0 % Monocytes (%) (Auto) 4.0 0.0-12.0 % Eosinophils (%) (Auto) 1.6 0.0-7.0 % Basophils (%) (Auto) 0.5 0.0-2.0 % Neutrophils # (Auto) 2.6 1.6-8.6 10 ^3/uL Lymphocytes # (Auto) 1.5 0.4-5.4 10 ^3/uL Monocytes # (Auto) 0.2 0-1.3 10 ^3/uL Eosinophils # (Auto) 0.1 0-0.8 10 ^3/uL Basophils # (Auto) 0 0-0.2 10 ^3/uL Nucleated Red Blood Cells 0.1 % Sodium Level 138 136-145 mmol/L Potassium Level 3.6 3.5-5.1 mmol/L Chloride Level 103 98-107 mmol/L Carbon Dioxide Level 29 20-31 mmol/L Anion Gap 6 5-15 Blood Urea Nitrogen 7 L 9-23 mg/dL Creatinine 0.77 0.550-1.02 mg/dL Glomerular Filtration Rate Calc 99 >90 mL/min BUN/Creatinine Ratio 9.1 L 10.0-20.0 Serum Glucose 93 74-106 mg/dL Calcium Level 9.8 8.7-10.4 mg/dL Troponin I High Sensitivity < 3 L </=34 ng/L Current Medications Medications (Trade) Dose Ordered Sig/Lorenzo Route Start Time Stop Time Status Last Admin Aspirin 162 mg ONCE ONCE PO 06/13/24 10:45 06/13/24 10:46 DC 06/13/24 11:01 Clonidine HCl (Catapres Tablet) 0.2 mg ONCE ONCE PO 06/13/24 10:45 06/13/24 10:48 DC 06/13/24 11:00 The patient was given aspirin 162 mg by mouth The patient was also given clonidine 0.2 mg by mouth The patient's CBC is within normal limits The chemistry panel is within normal limits The troponin level is negative At this time, the patient was being discharged and will follow up with the primary care doctor The patient will return to the emergency department's the condition worsens. Time of 1ST Reevaluation: 11:06 Reevaluation 1ST: Unchanged Time of 2ND Reevaluation: 12:23 Reevaluation 2ND: Improved Patient Education/Counseling: Diagnosis, Treatment, Prognosis, Need For Follow Up Family Education/Counseling: No Family Present Departure 1 Departure Time of Disposition: 12:22 Impression: Primary Impression: Hypertensive urgency Disposition: 01 HOME / SELF CARE / HOMELESS Condition: Fair Discharged With: Self Critical Care Note Critical Care Time?: No Stability Stability form required: No Heart Score Heart Score: Heart Score Response (Comments) Value History N/A 0 EKG N/A 0 Age N/A 0 Risk Factors N/A 0 Troponin N/A 0 Total 0 I personally scribed for MALA MCKEON MD ([email or web address]) on 06/13/24 at 10:46. Electronically submitted by Papito Multnai ([email or web address]). MALA MCKEON MD Jun 13, 2024 10:46
[2024-06-13] MEDS: cloNIDine HCL 0.1 MG TAB PO ONE (11:00)
[2024-06-13] MEDS: ASPirin 81 mg TAB PO ONE (11:01)
[2024-06-13 11:29] LABS: Basophils # (auto) 0 10 ^3/uL (0-0.2); Basophils % (auto) 0.5 % (0.0-2.0); Eosinophils # (auto) 0.1 10 ^3/uL (0-0.8); Eosinophils % (auto) 1.6 % (0.0-7.0); Hemoglobin 14.4 g/dL (12.2-16.2); Lymphocytes # (auto) 1.5 10 ^3/uL (0.4-5.4); Lymphocytes % (auto) 33.7 % (10.0-50.0); Mean Corpuscular Hemoglobin 30.5 pg (28.0-32.0); Mean Corpuscular Hgb Conc. 33.5 g/dL (32.0-36.0); Monocytes # (auto) 0.2 10 ^3/uL (0-1.3); Neutrophils # (auto) 2.6 10 ^3/uL (1.6-8.6); Neutrophils % (auto) 60.2 % (37.0-80.0); Nucleated Red Blood Cells % 0.1 %; Platelet Count (auto) 275 10^3/uL (140-450); Red Blood Cells 4.73 10^6/uL (4.0-5.20); White Blood Cell 4.3 10^3/uL (4.4-10.8)
[2024-06-13 11:43] LABS: Chloride 103 mmol/L (98-107); Potassium 3.6 mmol/L (3.5-5.1); Sodium 138 mmol/L (136-145)
[2024-06-13 11:44] LABS: Anion Gap 6 (5-15); Calcium 9.8 mg/dL (8.7-10.4); Carbon Dioxide 29 mmol/L (20-31)
[2024-06-13 11:49] LABS: BUN/Creatinine Ratio 9.1 (10.0-20.0); Glucose 93 mg/dL (74-106)
[2024-06-13 11:51] LABS: Blood Urea Nitrogen 7 mg/dL (9-23)
[2024-06-13 12:55] VITALS: BP 106/75; PULSE 77; RESP 20; TEMP 98; O2SAT 99
== END 2024-06-13 13:04 | disposition home or self-care (01) ==
LOC: ER 10:19
DX: I16.0 Hypertensive urgency (principal); Z79.899 Other long term (current) drug therapy; Z98.51 Tubal ligation status; Z98.890 Other specified postprocedural states
CPT/HCPCS: 36415; 80048; 84484; 85025; 93005